=== PATIENT | male | born 1985 | race Caucasian/White ===

== ENCOUNTER 2017-10-22 19:53 | Emergency (ER) | payer MEDICAID ==
[~2017-10-22] VITALS: Ht 180.3 cm; Wt 77.3 kg
[~2017-10-22 19:53] MED LIST: BACTRIM DS 8001 TAB PO; CEPHALEXIN500 M1 PO; FLEXERIL 1010 MG/TAB PO; NO HOME MEDICATIONS; PERCOCET 325 MG1 TA2 PO; PREDNISONE20 MG PO; ULTRAM 50MG TAB50 MG PO
[2017-10-22 19:58] VITALS: TEMP 97.5
[2017-10-22] MEDS ORDERED: FLEXERIL 1010 MG/TAB PO (20:57)
[2017-10-22 21:03] VITALS: BP 119/60; PULSE 75
== END 2017-10-22 21:13 | disposition home or self-care (01) ==
LOC: COL.ER 19:53
DX: M54.5 Low back pain (principal); X50.0XXA Overexertion from strenuous movement or load, initial encounter

== ENCOUNTER 2019-01-30 11:45 | Emergency (ER) | payer BC ==
[~2019-01-30] VITALS: Ht 180.3 cm; Wt 78.6 kg
[2019-01-30 11:52] VITALS: TEMP 97.1
[2019-01-30 12:02] LABS: BASO # 0.1 (0.0-0.2); BASO % 0.8 % (0.0-2.0); EOS # 0.2 (0.0-0.7); EOS % 1.7 % (0-4.0); GRAN % 49.5 % (42.2-75.2); HEMATOCRIT 46.2 % (42.0-52.0); HEMOGLOBIN 16.7 g/dl (13.5-18.0); LYMPH % 40.3 % (20.0-51.0); MEAN CELL VOLUME 89 fl (80.0-100.0); MEAN CORPUSCULAR HEMOGLOBIN 32 pg (27.0-31.0); MEAN CORPUSCULAR HGB CONC 36 g/dl (33.0-37.0); MEAN PLATELET VOLUME 9.3 fl (7.4-10.4); MONO # 0.8 (0.1-0.6); MONO % 7.5 % (1.7-9.3); PLATELET COUNT 270 K/mm3 (130-400); RED BLOOD COUNT 5.19 M/mm3 (4.20-5.60); REDCELL DISTRIBUTION WIDTH-CV 11.6 % (11.5-14.5)
[2019-01-30 12:12] LABS: ALANINE AMINOTRANSFERASE 24 U/L (21-72); ALBUMIN 5.1 gm/dL (3.5-5.0); ALKALINE PHOSPHATASE 67 U/L (50-136); ANION GAP 11 mmol/L (7-16); AST,SGOT 28 U/L (15-37); BILIRUBIN,TOTAL 0.9 mg/dL (0.0-1.0); BLOOD UREA NITROGEN 13 mg/dL (9-20); CALCIUM 9.9 mg/dL (8.4-10.2); CARBON DIOXIDE 25 mmol/L (22-30); CHLORIDE 103 mmol/L (98-107); CREATININE, serum 0.86 (0.66-1.25); GLUCOSE 93 mg/dL (74-106); LIPASE 50 U/L (23-300); POTASSIUM 3.6 mmol/L (3.4-5.0); SODIUM 139 mmol/L (137-145); TOTAL PROTEIN 8.3 gm/dL (6.4-8.2)
[2019-01-30 12:25] LABS: TROPONIN-I < 0.012 ng/mL (0.000-0.035)
[2019-01-30 13:27] LABS: TRICYCLIC ANTIDEPRESS URINE NEGATIVE
[2019-01-30] MEDS ORDERED: ATIVAN 0.50.5 MG/TAB PO (14:50)
[2019-01-30 16:11] VITALS: BP 130/89; PULSE 76
== END 2019-01-30 16:00 | disposition home or self-care (01) ==
LOC: COL.ER 11:45
PROVIDERS: Physician Assistant
DX: T43.615A Adverse effect of caffeine, initial encounter (principal); F41.9 Anxiety disorder, unspecified; R07.89 Other chest pain; F19.10 Other psychoactive substance abuse, uncomplicated; F17.210 Nicotine dependence, cigarettes, uncomplicated
CPT/HCPCS: J2060; J7030

== ENCOUNTER 2020-05-18 15:45 | Outpatient (RCR) | payer BC ==
[~2020-05-18 15:45] MED LIST changes: +ATIVAN 0.50.5 MG/TAB PO
== END 2020-05-19 10:01 ==
LOC: WSPT
DX: M54.10 Radiculopathy, site unspecified (principal)

== ENCOUNTER 2020-06-12 07:30 | Outpatient (RCR) | payer BC | END 2020-08-16 | disposition still patient (30) | LOC: WSPT | DX: M54.16 Radiculopathy, lumbar region (principal); M79.605 Pain in left leg ==

== ENCOUNTER → 2020-08-12 | Outpatient (CLI) | payer BC | LOC: MHCPAIN 10:04 | DX: M47.817 Spondylosis without myelopathy or radiculopathy, lumbosacral region (principal); M54.16 Radiculopathy, lumbar region; M53.3 Sacrococcygeal disorders, not elsewhere classified; G89.29 Other chronic pain | CPT/HCPCS: G0463 ==

== ENCOUNTER → 2020-08-13 | Outpatient (CLI) | payer BC | LOC: MHCPAIN 10:10 | DX: M47.817 Spondylosis without myelopathy or radiculopathy, lumbosacral region (principal); M54.16 Radiculopathy, lumbar region | CPT/HCPCS: J1100; Q9967 ==

== ENCOUNTER → 2020-08-25 | Outpatient (CLI) | payer BC | LOC: MHCPAIN 12:26 | DX: M47.817 Spondylosis without myelopathy or radiculopathy, lumbosacral region (principal); M54.5 Low back pain; M53.3 Sacrococcygeal disorders, not elsewhere classified | CPT/HCPCS: G0463 ==

== ENCOUNTER → 2020-08-31 | Outpatient (CLI) | payer BC | LOC: MHCPAIN 12:14 | DX: M47.817 Spondylosis without myelopathy or radiculopathy, lumbosacral region (principal); M53.3 Sacrococcygeal disorders, not elsewhere classified | CPT/HCPCS: J1100; Q9967 ==

== ENCOUNTER → 2020-09-21 | Outpatient (CLI) | payer BC | LOC: MHCPAIN 09:18 | DX: M47.816 Spondylosis without myelopathy or radiculopathy, lumbar region (principal); M53.3 Sacrococcygeal disorders, not elsewhere classified; M54.16 Radiculopathy, lumbar region; G89.29 Other chronic pain | CPT/HCPCS: G0463 ==

== ENCOUNTER 2024-03-11 14:12 | Emergency (ER) | payer OTHER, BC ==
[~2024-03-11] VITALS: Ht 180.3 cm; Wt 95.5 kg
[2024-03-11 14:17] VITALS: TEMP 98.7
[2024-03-11] MEDS ORDERED: Ketorolac 30 MG/ML VIAL IV ONE (18:30)
[2024-03-11] MEDS ORDERED: NS 1,000 ML IV ONE (18:30)
[2024-03-11] MEDS ORDERED: Acetaminophen 325 MG TAB PO ONE (18:30)
[2024-03-11 19:11] LABS: BASO # 0.1 K/mm3 (0.0-0.2); EOS # 0.3 K/mm3 (0.0-0.7); EOS % 2.6 % (0.0-4.0); GRAN # 4.5 K/mm3 (1.4-6.5); HEMATOCRIT 45.8 % (42.0-52.0); HEMOGLOBIN 16.3 g/dl (13.5-18.0); LYMPH # 4.4 K/mm3 (1.2-3.4); MEAN CELL VOLUME 89 fl (80.0-100.0); MEAN CORPUSCULAR HEMOGLOBIN 32 pg (27-31); MEAN CORPUSCULAR HGB CONC 36 g/dl (33.0-37.0); MEAN PLATELET VOLUME 9.2 fl (7.4-10.4); MONO # 0.7 K/mm3 (0.1-0.6); MONO % 7.1 % (1.7-9.3); PLATELET COUNT 269 K/mm3 (130-400); RED BLOOD COUNT 5.17 M/mm3 (4.20-5.60); REDCELL DISTRIBUTION WIDTH-CV 11.6 % (11.5-14.5)
[2024-03-11 19:33] LABS: ALBUMIN 4.2 g/dL (3.5-5.0); CREATININE, serum 0.98 mg/dL (0.72-1.25); POTASSIUM 3.9 mEq/L (3.5-4.5); TOTAL PROTEIN 7.2 g/dl (6.2-8.1)
[2024-03-11 20:20] LABS: BILIRUBIN,TOTAL 0.5 mg/dL (0.2-1.2)
[2024-03-11 20:22] VITALS: BP 140/79; PULSE 64
== END 2024-03-11 20:23 | disposition home or self-care (01) ==
LOC: COL.ER 14:12
PROVIDERS: Nurse Practitioner Primary Care
DX: T59.4X1A Toxic effect of chlorine gas, accidental (unintentional), initial encounter (principal); R51.9 Headache, unspecified
CPT/HCPCS: J1885; J7030